=== PATIENT | male | born 1970 | race Two or more races ===

== ENCOUNTER → 2016-11-02 | Outpatient (REF) | payer OTHER ==
[2016-11-02 12:09] LABS: BASO # 0.1 K/mm3 (0.0-0.2); BASO % 1.1 % (0.0-1.0); EOS # 0.2 K/mm3 (0.0-0.50); EOS % 2.9 % (0.0-3.0); LARGE UNSTAINED CELL # 0.2 K/mm3 (0.0-0.4); LARGE UNSTAINED CELL % 3.3 % (0.0-4.0); LYMPH # 1.4 K/mm3 (1.5-4.5); LYMPH % 24.7 % (24.0-44.0); MEAN CORPUSCULAR HEMOGLOBIN 25.9 pg (27.0-33.0); MEAN CORPUSCULAR HGB CONC 32.6 g/dl (32.0-36.5); MEAN CORPUSCULAR VOLUME 79.4 fl (80.0-96.0); MONO # 0.3 K/mm3 (0.0-0.8); MONO % 5.8 % (0.0-5.0); NEUTROPHILS # 3.5 K/mm3 (1.8-7.7); NEUTROPHILS % 62.3 % (36.0-66.0); PLATELET COUNT, AUTOMATED 402 k/mm3 (150-450); RED CELL DISTRIBUTION WIDTH 14.6 % (11.5-14.5); WHITE BLOOD COUNT 5.6 K/mm3 (4.0-10.0)
[2016-11-02 12:57] LABS: ERYTHROCYTE SEDIMENTATION RATE 4 mm/hr (0-15)
[2016-11-04 12:55] LABS: FERRITIN 5 NG/ML (26-388); PERCENT SATURATION 8.4 % (19.7-50.0); TOTAL IRON BINDING CAPACITY 453 UG/DL (250-450)
[2016-11-06 00:06] LABS: E CHAFFEENSIS IgG TITER Negative (Neg:<1:64); E CHAFFEENSIS IgM TITER Negative (Neg:<1:20); HUMAN GRANULCYTIC EHRLIC IgG Negative (Neg:<1:64); HUMAN GRANULCYTIC EHRLIC IgM Negative (Neg:<1:20); Lyme Disease IgG/IgM Antibodie <0.91 ISR (0.00-0.90); Lyme Disease IgM Ab Quantitati <0.80 index (0.00-0.79)
== END ==
LOC: M SFHCPLAZ 10:08
PROVIDERS: ATTEND Internal Medicine Infectious Disease
DX: M25.50 Pain in unspecified joint (principal); A77.40 Ehrlichiosis, unspecified